=== PATIENT | male | born 1995 | race African-American/Black ===

== ENCOUNTER 2020-11-26 15:09 | Emergency (ER) | payer MEDICAID, OTHER ==
[~2020-11-26] VITALS: Ht 188 cm; Wt 76.0 kg
[2020-11-26 16:00] VITALS: BP 133/91
[2020-11-26] MEDS ORDERED: ACETAMINOPHEN 325MG TABLET PO ONE (16:45)
[2020-11-26] MEDS ORDERED: BACITRACIN ZINC OINT UDPKT TOP ONE (16:45)
[2020-11-26] MEDS ORDERED: TETANUS, DIPHTHERIA, PERTUSSIS VAC/PF 0.5ML (>7YR OLD) IM ONE (16:45)
[2020-11-26] MEDS ORDERED: LIDOCAINE HCL/EPINEPHRINE 1%-EPI 1:100,000 20 ML VIAL INFIL ONE (16:45)
[2020-11-26] MEDS ORDERED: LIDOCAINE HCL/PF 1% 10 MG/ML 5ML VIAL INFIL ONE (16:45)
== END 2020-11-26 19:33 | disposition left against medical advice (07) ==
LOC: ER 15:09
DX: S01.01XA Laceration without foreign body of scalp, initial encounter (principal); G40.909 Epilepsy, unspecified, not intractable, without status epilepticus; J45.909 Unspecified asthma, uncomplicated; W01.0XXA Fall on same level from slipping, tripping and stumbling without subsequent striking against object, initial encounter; Y93.89 Activity, other specified; Y92.89 Other specified places as the place of occurrence of the external cause
CPT/HCPCS: 12001; 99282; J3490; 90715

== ENCOUNTER 2020-12-04 10:13 | Emergency (ER) | payer MEDICAID ==
[~2020-12-04] VITALS: Ht 180.3 cm; Wt 75.0 kg
[2020-12-04 10:48] VITALS: BP 123/75
== END 2020-12-04 11:04 | disposition home or self-care (01) ==
LOC: ER 10:49
DX: S01.01XD Laceration without foreign body of scalp, subsequent encounter (principal); X58.XXXD Exposure to other specified factors, subsequent encounter
CPT/HCPCS: 99281; Z7610

== ENCOUNTER 2020-12-08 14:51 | Emergency (ER) | payer MEDICAID ==
[~2020-12-08] VITALS: Ht 188 cm; Wt 73.0 kg
[2020-12-08 15:07] VITALS: BP 125/74
== END 2020-12-08 15:25 | disposition home or self-care (01) ==
LOC: ER 14:51
DX: Z48.02 Encounter for removal of sutures (principal)
CPT/HCPCS: 99281; Z7610

== ENCOUNTER 2022-12-07 03:59 | Emergency (ER) | payer MEDICAID ==
[~2022-12-07] VITALS: Ht 188 cm; Wt 80.0 kg
[2022-12-07 04:08] VITALS: BP 112/69; PULSE 75; RESP 16; TEMP 98.5; O2SAT 100
== END 2022-12-10 04:41 | disposition left against medical advice (07) ==
LOC: ER 03:59
DX: Z53.21 Procedure and treatment not carried out due to patient leaving prior to being seen by health care provider (principal)